=== PATIENT | male | born 1945 | race Caucasian/White ===

== ENCOUNTER → 2016-12-19 | Outpatient (CLI) | payer MEDICARE, BC ==
[~2016-12-19] MED LIST: AMITRYPTYLINE; AMLODIPINE BESY10 MG PO; ASPIRIN; ATORVASTATIN CA10 MG PO; BAYER ASPIRIN325 M1 PO; CRESTOR; DARVOCET-N 1001 TAB; HCTZ; LISINOPRIL20 MG PO; LOPRESSOR PO; LOSARTAN-HCTZ1 EAC1 PO; METOPROLOL TAR100 MG PO; NORVASC PO; PLAVIX; PREDNISONE PO; PRILOSEC20 MG PO; SIMVASTATIN80 MG PO; TOPROL XL; ZETIA PO
--- NOTE | ~2016-12-19 | US10 ---
[id number] [address] [id number] O MR#: [id number] Acc #: [id number] NAME: АЛЕКСАНДР RAYGOZA : 1945 SEX: M STUDY DATE/TIME: 12/19/2016 8:39 UNIT: SGUS ROOM: STUDY DESCRIPTION: US Aorta Complete Attending Physician: Ted Champion Jr., M.D. Referring Physician: Ted Champion Jr., M.D. Ordering Physician: Ted Champion Jr., M.D. Primary Care Physician: eTd Champion Jr., M.D. MEDICAL IMAGING REPORT This report is preliminary unless electronic signature is present. EXAM Abdominal aorta ultrasound. INDICATIONS Abdominal aortic aneurysm screening. PROCEDURE Marcano-scale and color Doppler spectral imaging of the abdominal aorta. COMPARISON None FINDINGS The proximal aorta measures 2.1 cm in AP dimension. The mid abdominal aorta measures 1.7 cm AP dimension. The distal abdominal aorta measures 1.4 cm in AP dimension. The common iliac arteries measure 16-17 mm. IMPRESSION No evidence for abdominal aortic aneurysm. Dictated by... Samuel Mohr M.D. THIS IS AN ELECTRONICALLY VERIFIED REPORT Samuel Mohr M.D. at 12/23/2016 7:02 AM CHARLA/katarina TD: 12/19/2016 12:43 JOB #: [id number] MEDICAL IMAGING REPORT
== END | disposition home or self-care (01) ==
LOC: SGUS 07:59
DX: Z13.6 Encounter for screening for cardiovascular disorders (principal); Z87.891 Personal history of nicotine dependence
CPT/HCPCS: 76770

== ENCOUNTER 2016-12-26 10:09 | Emergency (ER) | payer OTHER ==
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
[~2016-12-26 10:09] MED LIST changes: -ATORVASTATIN CA10 MG PO; -LOSARTAN-HCTZ1 EAC1 PO; -METOPROLOL TAR100 MG PO
[2017-02-27] MEDS ORDERED: LOSARTAN-HCTZ1 EAC1 PO (08:58)
[2017-02-27] MEDS ORDERED: METOPROLOL TAR100 MG PO (08:59)
[2017-02-27] MEDS ORDERED: ATORVASTATIN CA10 MG PO (08:59)
== END 2016-12-26 11:05 | disposition home or self-care (01) ==
LOC: CFTX 10:09
DX: S16.1XXA Strain of muscle, fascia and tendon at neck level, initial encounter (principal); I10 Essential (primary) hypertension; F17.210 Nicotine dependence, cigarettes, uncomplicated; V49.00XA Driver injured in collision with unspecified motor vehicles in nontraffic accident, initial encounter
CPT/HCPCS: 72125; 99284

== ENCOUNTER → 2017-01-02 | Outpatient (CLI) | payer MEDICARE, BC ==
[~2017-01-02] MED LIST changes: +ATORVASTATIN CA10 MG PO; +LOSARTAN-HCTZ1 EAC1 PO; +METOPROLOL TAR100 MG PO
--- NOTE | ~2017-01-02 | US128 ---
[id number] [address] [address] [id number] O MR#: [id number] Acc #: [id number] NAME: АЛЕКСАНДР RAYGOZA : 1945 SEX: M STUDY DATE/TIME: 01/02/2017 9:06 UNIT: SGUS ROOM: STUDY DESCRIPTION: Thyroid Attending Physician: Ted Champion Jr., M.D. Referring Physician: Ted Champion Jr., M.D. Ordering Physician: Ted Champion Jr., M.D. Primary Care Physician: Ted Champion Jr., M.D. MEDICAL IMAGING REPORT This report is preliminary unless electronic signature is present. EXAM Thyroid ultrasound. HISTORY Thyroid mass. This was identified on a CT of the cervical spine, which was performed 12/26/2016. This exam was requested for additional characterization. TECHNIQUE Grayscale and color Doppler sonographic images were obtained through the thyroid gland. FINDINGS Right lobe of the thyroid gland measures 4.8 x 2.9 x 2.1 cm. Left lobe measures 4.6 x 2.8 x 3 cm. Within the right lobe of the thyroid gland, there is a tiny hypoechoic nodule measuring about 3 x 2 x 2 mm that potentially may reflect a colloid cyst. There is a dominant solid nodule seen within the left obese of the thyroid gland that is hypoechoic with a hypoechoic rim, and it measures up to 2.2 x 1.9 x 2.8 cm. IMPRESSION Dominant solid nodule within the left lobe of the thyroid gland does meet size criteria for percutaneous sampling, and this is recommended. Dictated by... Marcia Chacon M.D. THIS IS AN ELECTRONICALLY VERIFIED REPORT Marcia Chacon M.D. at 01/05/2017 4:46 PM AFF/lilia TD: 01/02/2017 17:10 JOB #: [id number] MEDICAL IMAGING REPORT Page 1 of 1
== END | disposition home or self-care (01) ==
LOC: SGUS 08:21
DX: E07.89 Other specified disorders of thyroid (principal); E04.1 Nontoxic single thyroid nodule
CPT/HCPCS: 76536

== ENCOUNTER → 2017-02-27 | Day surgery (SDC) | payer MEDICARE, BC ==
--- NOTE | ~2017-02-27 | OR ---
Unit #: [id number] #: [id number] Patient: АЛЕКСАНДР RAYGOZA [id number] [address] [address] [id number] O MR#: [id number] NAME: АЛЕКСАНДР RAYGOZA. ROOM: Date of Procedure: 02/27/2017 Admission Date: 02/27/2017 Surgeon: Angel Pardo M.D. : 1945 Attending Physician: Angel Pardo M.D. Primary Care Physician: Ted Champion Jr., M.D. OPERATIVE REPORT PROCEDURE PERFORMED Colonoscopy with snare polypectomy. INDICATIONS FOR PROCEDURE A 72-year-old gentleman with average risk for colorectal cancer. MEDICATIONS Monitored anesthesia. POSTOPERATIVE FINDINGS 1. Polyp, transverse colon, 5 mm, snared and sent for histopathology. 2. Polyp, sigmoid colon, 5 mm, snared and sent for histopathology. 3. Good prep. 4. Rest of the exam was normal. PLAN Follow up on pathology report. Repeat colonoscopy in 5 years if adenomatous. DESCRIPTION OF PROCEDURE The patient was explained of the procedure, risks, and benefits along with risks and benefits of anesthesia. He was brought to the endoscopy room. Propofol anesthesia was given. Rectal exam was done, which was normal. Colonoscope was lubricated, passed up the rectum, advanced under direct vision all the way to the cecum. Cecum was identified by ileocecal valve and appendiceal orifice. I then started to pull the scope out carefully looking. Two polyps were seen as described. I retroflexed in the rectum, small hemorrhoids seen. Scope was gently pulled out. He tolerated it well. No major complications were seen. Dictated by... Maame Regalado/soraida TD: 02/27/2017 22:36 JOB #: [id number] Unit #: [id number] #: [id number] Patient: АЛЕКСАНДР RAYGOZA OPERATIVE REPORT Page 1 of 1 X Angel Pardo MD PROCEDURE OPERATIVE NOTE
== END | disposition home or self-care (01) ==
LOC: COPS 08:28
DX: Z12.11 Encounter for screening for malignant neoplasm of colon (principal); D12.3 Benign neoplasm of transverse colon; D12.5 Benign neoplasm of sigmoid colon; K64.9 Unspecified hemorrhoids; I10 Essential (primary) hypertension; I25.2 Old myocardial infarction; Z95.5 Presence of coronary angioplasty implant and graft; Z98.1 Arthrodesis status
CPT/HCPCS: 88302; 88305

== ENCOUNTER → 2017-03-30 | Outpatient (CLI) | payer MEDICARE, BC ==
[2017-03-30 13:21] LABS: BASOPHIL% 0.5 % (0-2.5); EOSINOPHIL# 0.4 X10e3 (0-0.7); HEMATOCRIT 42.2 % (38.0-50.0); HEMOGLOBIN 14.1 gm/dL (13.0-16.0); LYMPHOCYTE# 1.4 X10e3 (1.0-3.5); LYMPHOCYTE% 18.9 % (17.0-45.0); MEAN CELL VOLUME 91.4 FL (83-96); MEAN CORPUSCULAR HEMOGLOBIN 30.5 PG (28-34); MEAN CORPUSCULAR HGB CONC 33.3 g/dL (30-36); MEAN PLATELET VOLUME 8.5 FL (6.5-11.5); MONOCYTE# 0.6 X10e3 (0-1.0); MONOCYTE% 7.7 % (3.0-12.0); NEUTROPHIL# 5.1 X10e3 (1.5-7.1); NEUTROPHIL% 67.9 % (40-75); PLATELET COUNT 203 X10e3 (140-420); RED BLOOD COUNT 4.62 X10e (3.90-5.60); RED CELL DISTRIBUTION WIDTH 13.9 % (11.0-15.5); WHITE BLOOD COUNT 7.5 X10e3 (4.0-10.5)
[2017-03-30 13:23] LABS: DIFF IND NO
[2017-03-30 13:59] LABS: CALCIUM SERUM 9.3 mg/dL (8.4-10.2); CREATININE SERUM 1.1 mg/dL (0.6-1.4); GLOM FILT RATE Estimated 67.2 mL/min (>60); POTASSIUM 3.3 mmol/L (3.5-5.1)
[2017-03-30 14:10] LABS: THYROID STIMULATING HORMONE 0.62 uIU/ml (0.34-5.60)
[2017-03-30 14:15] LABS: FREE T3 3.4 pg/mL (2.5-3.9)
[2017-04-01 18:01] LABS: CALCIUM (PTHINTACT) 9.5 mg/dL (8.6-10.3)
== END | disposition home or self-care (01) ==
LOC: CLAB 12:30
PROVIDERS: Specialist
DX: E04.1 Nontoxic single thyroid nodule (principal)
CPT/HCPCS: 36415; 80048; 82306; 82310; 83970; 84436; 84443; 84481; 85025